=== PATIENT | male | born 1970 | race Caucasian/White ===

== ENCOUNTER 2024-03-31 23:35 | Emergency (ER) | payer OTHER, SELFPAY ==
[2024-03-31 23:37] VITALS: BP 124/93
[2024-04-01 00:25] VITALS: BP 146/83; BMI 29.3
--- NOTE | 2024-04-01 01:31 | ED.GENMED ---
History of Present Illness
General
Chief Complaint: Ear Problem
Source: patient
Exam Limitations: none
Time Seen by Provider: 03/31/24 23:51
Nursing documentation reviewed up to this point in time: agreed with
History of Present Illness
History of Present Illness:
54-year-old male with history as documented presents for evaluation of ringing in his ear. Patient reports that he was sitting in bed reading tonight and began to have ringing in his left ear. He says that it became loud and very intense and was
not going away and so he came to the emergency room. He says since arriving it seems to have improved. He says he has had similar symptoms in the past but never quite as intense or persistent�usually last for brief moment and goes away. He denies
any other complaints including hearing loss, ear pain, ear discharge or drainage. He is on lacosamide for epilepsy and has had been on a steady dose since August. He does not take aspirin.
Past History
Past History
ED Past Medical History: Asthma, Cancer (Thyroid) and GERD
ED Past Surgical History: Other (Thyroidectomy)
Social History
Tobacco: Non-smoker
Alcohol: None
Personal:
Living: with family
Family History
Family History: Other (COPD and her father. MS her mother)
Review of Systems
Review of Systems
All Other Systems: ROS reviewed and negative except as documented in HPI and ROS
EENT: Reports other (Tinnitus)
Phy Exam
Physical Exam
Physical Exam:
General: Awake, alert, oriented x3; no acute distress
Head: Normocephalic, atraumatic
Eyes: Conjunctiva normal, pupils equal round and reactive to light bilaterally
Ears: External ear normal bilaterally, right ear canal clear and TM normal; left ear canal no cerumen or obstruction, TM appears normal with good light reflex, no bulging, no effusion, no cholesteatoma or any other abnormality noted
Throat: Airway intact, handling secretions
Neck: Trachea midline, supple without meningismus, no carotid bruits appreciated
Lungs: Breathing comfortably no distress
Heart: Regular rate and rhythm, no murmurs, gallops, or rubs
Neuro: Cranial nerves grossly intact, speech fluid, ambulatory with normal gait, no gross motor or sensory deficits
Scores
Heart Failure Risk
Heart Failure Risk Score: Not Applicable
Heart Score for Chest Pain Patients
STEMI patient?: Not applicable
Withdrawal Assessment of Alcohol
Withdrawal Assessment Completed?: Not applicable
Course
Vital Signs
Initial and Last Documented VS:
Initial Vital Signs
Pulse Resp BP Pulse Ox
74 18 124/93 96
03/31/24 23:37 03/31/24 23:37 03/31/24 23:37 03/31/24 23:37
Last Documented Vital Signs
Pulse Resp BP Pulse Ox
74 18 146/83 97
03/31/24 23:37 03/31/24 23:37 04/01/24 00:25 04/01/24 00:25
MDM/Problems Addressed
Differential Diagnosis Includes:
Cerumen impaction, ear effusion, ototoxicity from medication
MDM/Problems Addressed:
54-year-old male presents with left ear tenderness�was intense and more persistent earlier while sitting in bed seems to have improved since arrival in the ER. No ear pain or hearing loss. Exam appears normal. Stable for discharge refer to ENT as
an outpatient; he does have issues with allergies reasonable to start on some Flonase to see if perhaps this could be related to allergies/middle ear disease.
*Pulse Oximetry
Patient hypoxic: no
*Critical Care Note
Total Time (30-74mins, 75-104mins- exclusive of procedures): Not Applicable
Data Reviewed
Source: patient
ED Attending Note
-
Portions of this chart may have been created with voice recognition software.� Occasional wrong word or��sound alike� substitutions may have occurred due to the inherent limitations of voice recognition software.
Discharge Plan
Departure
Patient Disposition: Home (Routine Discharge)
Date of Disposition: 04/01/24
Time of Disposition: 00:16
Patient with high blood pressure during this ER visit?: No
Discharge Problem:
Tinnitus of left ear
Instructions: Tinnitus (ringing in the ears)
Prescriptions:
No Action
clonazepam 0.5 MG tablet
0.5 mg PO HS
clomipramine [Anafranil] 75 MG capsule
75 mg PO HS
albuterol sulfate 1 PUFF HFA aerosol inhaler
1 puff inhalation R Q4HPRN PRN (Reason: sob/ exercise)
Patient Comments:
used pre exercise
azithromycin 250 MG tablet
250 mg PO DAILY
prednisone 20 MG tablet
20 mg PO BID
promethazine-codeine 5 ML syrup
5 - 10 ml PO Q6HPRN PRN (Reason: Cough) Qty: 120 0RF
albuterol sulfate 18 GM HFA aerosol inhaler
18 gm IH Q4 Qty: 1 0RF
prednisone 10 mg tablet
10 mg PO DIRECTED Qty: 30 0RF
Rx Instructions:
50mg x 2 days, 40mg x 2 days, 30mg x 2 days, 20mg x 2 days, 10mg x 2 days
albuterol sulfate [ProAir HFA] 90 mcg/actuation HFA aerosol inhaler
1 puff inhalation Q4HPRN PRN (Reason: shortness of breath) Qty: 8.5 0RF
albuterol sulfate 2.5 mg /3 mL (0.083 %) solution for nebulization
2.5 mg inhalation Q4H PRN (Reason: bronchospasm) Qty: 90 0RF
Referrals:
Kamlesh Lara MD [Active] - Call in 1-3 days for appt
Activity Restrictions/Additional Instructions:
Thank you for visiting the Emergency Department at [facility].
1. Please schedule a follow up appointment as directed. Call first thing tomorrow morning to make an appointment.
2. If indicated, please take your medications as instructed and indicated on discharge paperwork.
3. If any of your symptoms do not improve, or persist, or become more severe within 6-12 hours, please return to the emergency department for further care.
4. Please return to the emergency department if you develop a headache, neck pain/stiffness, fever greater than 100.4F, chest pain, shortness of breath, persistent nausea, vomiting, slurred speech, difficulty walking, numbness/tingling, weakness,
signs of infection or any other symptoms that are worrisome to you.
Please call [phone] if you have any questions.
Interventions
Interventions:
*Risk Screen - Suicide Last Done: 04/01/24 00:26
*General Assessment Last Done: 03/31/24 23:40
*Neglect/Abuse Screening Last Done: 04/01/24 00:26
ED- Fall Risk Assessment Last Done: 04/01/24 00:30
*ED COVID-19 Vaccine History Last Done: 04/01/24 00:26
*Nursing Disposition Last Done: 04/01/24 00:30
Discharge Date and Time
Discharge Date/Time: 04/01/24 00:34
Print Language: JORDANIAN
== END 2024-04-01 00:34 | disposition home or self-care (01) ==
LOC: EMR 23:35
PROVIDERS: EMERGENCY PHYSICIAN Emergency Medicine; FAMILY PHYSICIAN Internal Medicine
DX: H93.12 Tinnitus, left ear (principal); J45.909 Unspecified asthma, uncomplicated; K21.9 Gastro-esophageal reflux disease without esophagitis; G40.909 Epilepsy, unspecified, not intractable, without status epilepticus; Z79.899 Other long term (current) drug therapy
CPT/HCPCS: 99282

== ENCOUNTER → 2024-08-09 15:30 | Outpatient (REF) | payer OTHER, SELFPAY | LOC: RAD 15:30 | PROVIDERS: ATTENDING PHYSICIAN Nurse Practitioner Family | DX: J06.9 Acute upper respiratory infection, unspecified (principal) | CPT/HCPCS: 71046 ==

== ENCOUNTER → 2024-10-05 17:14 | Outpatient (REF) | payer OTHER, SELFPAY | LOC: RAD 17:14 | PROVIDERS: ATTENDING PHYSICIAN Nurse Practitioner Family | DX: R07.9 Chest pain, unspecified (principal) | CPT/HCPCS: 71046 ==

== ENCOUNTER 2024-11-13 20:23 | Emergency (ER) | payer OTHER, SELFPAY ==
[2024-11-13 20:25] VITALS: BP 131/81
[2024-11-13 20:59] LABS: % Basophils 0.9 % (0-2); % Eosinophils 6.2 % (0-6); % Immature Granulocytes 0.2 % (0-0.5); % Lymphocytes 28.6 % (20.5-51.1); % Monocytes 7.8 % (1.7-9.3); % Neutrophils 56.3 % (42.2-75.2); Absolute Basophils 0.1 10^3/uL (0-0.2); Absolute Eosinophils 0.5 10^3/uL (0-0.7); Absolute Lymphocytes 2.4 10^3/uL (1.2-3.4); Absolute Monocytes 0.7 10^3/uL (0.1-0.6); Absolute Neutrophils 4.8 10^3/uL (1.4-6.5); Hematocrit 43.9 % (39.0-52.0); Hemoglobin 14.8 g/dL (13.0-18.0); Mean Corp Hgb Conc. 33.7 g/dL (33.0-37.0); Mean Corpuscular Hgb 27.7 pg (27.0-31.0); Mean Corpuscular Volume 82.2 fL (80.0-94.0); Mean Platelet Volume 9.9 fL (7.4-10.4); Nucleated Red Blood Cells % 0 % (-); Platelet Count 250 10^3/uL (130-400); Red Blood Cell Count 5.34 10^6/uL (4.70-6.10); Red Cell Dist. Width 13.5 % (11.5-14.5); White Blood Cell Count 8.5 10^3/uL (4.8-10.8)
[2024-11-13 21:04] LABS: ALT (SGPT) 37 U/L (0-50); AST (SGOT) 32 U/L (17-59); Albumin 3.9 g/dl (3.5-5.0); Alkaline Phosphatase 112 U/L (38-126); Blood Urea Nitrogen 22 mg/dl (9-20); Calcium 9.6 mg/dl (8.4-10.2); Carbon Dioxide 28 mmol/L (22-30); Chloride 103 mmol/L (98-107); Glucose 108 mg/dl (70-99); Potassium 4.7 mmol/L (3.5-5.1); Sodium 139 mmol/L (135-145); Total Bilirubin 0.4 mg/dl (0.2-1.3); Total Protein 6.8 g/dl (6.3-8.2); eGFR > 60.00
[2024-11-13 21:13] LABS: Troponin I < 0.012 ng/ml
[2024-11-13 21:35] LABS: TSH Reflex To Free T4 1.81 uIU/ml (0.47-4.68)
[2024-11-13 21:53] VITALS: BP 121/85; BMI 30.1
[2024-11-13 22:00] VITALS: BP 118/85
--- NOTE | 2024-11-13 22:40 | ED.GENMED ---
History of Present Illness
General
Chief Complaint: Cardiac Symptoms
Time Seen by Provider: 11/13/24 22:06
History of Present Illness
History of Present Illness:
54-year-old male with history of thyroid cancer status post thyroidectomy and seizure disorder presenting to the emergency department for episode of chest pain. Patient reports around 830 he started to have midsternal chest pain and felt a lot of
pressure in his head. He also noted some shortness of breath at the time. Symptoms lasted about 2 hours and have since completely resolved. Does note that he has had anxiety attacks in the past with similar symptoms, however felt that this was
slightly worse. Denies any known cardiac history. Denies family history of cardiac disease. Does note recent adjustment of his thyroid medication. Denies abdominal pain or GI symptoms. Denies additional acute complaints
Past History
Past History
ED Past Medical History: Asthma, Cancer (Thyroid) and GERD
ED Past Surgical History: Other (Thyroidectomy)
Social History
Tobacco: Non-smoker
Alcohol: None
Personal:
Living: with family
Family History
Family History: Other (COPD and her father. MS her mother)
Phy Exam
Physical Exam
Physical Exam:
General: Well-appearing, no clinical signs of dehydration, nontoxic and in no acute distress
HEENT: protecting airway
Neck: appears supple
CV: Normal heart rate, regular rhythm, no evidence of cyanosis
Resp: No accessory muscle use, no increased work of breathing
Abd: Soft and non-distended, no tenderness to palpation
Extremities: No deformities, no swelling
Neuro: alert, no focal neurologic deficit
: deferred
Rectal: deferred
Psych: Normal affect
Skin: Intact
Course
Orders/Labs/Results
Orders:
Orders
11/13/24 20:27
Electrocardiogram (*1) Urgent
Reason for Study: Chest Pain
11/13/24 20:28
EKG- Treatment ONCE
11/13/24 20:42
Comprehensive Metabolic Panel Urgent
11/13/24 20:44
Complete Blood Count/With Diff Urgent
TSH Reflex To Free T4 Urgent
Troponin I Urgent
11/13/24 22:39
Electrocardiogram (*1) Urgent
Reason for Study: Chest Pain
EKG- Treatment ONCE
11/13/24 23:00
Troponin I Urgent
Abnormal Lab Results
11/13/24 11/13/24
20:42 20:44
Absolute Monos (auto) 0.7 H 10^3/uL
(0.1-0.6)
Eosinophils % 6.2 H %
(0-6)
BUN 22 H mg/dl
(9-20)
Glucose 108 H mg/dl
(70-99)
11/13/24 20:44
11/13/24 20:42
Vital Signs
Initial and Last Documented VS:
Initial Vital Signs
Temp Pulse Resp BP Pulse Ox
97.6 F 58 18 131/81 96
11/13/24 20:25 11/13/24 20:25 11/13/24 20:25 11/13/24 20:25 11/13/24 20:25
Last Documented Vital Signs
Temp Pulse Resp BP Pulse Ox
97.6 F 73 24 127/86 98
11/13/24 20:25 11/13/24 23:00 11/13/24 22:45 11/13/24 23:00 11/13/24 23:00
MDM/Problems Addressed
MDM/Problems Addressed:
54-year-old male with history of thyroid cancer status post thyroidectomy and seizure disorder presenting for chest pain. Vital signs are normal.
On exam patient is resting comfortably, currently asymptomatic. EKG obtained on patient's arrival, nonischemic. Reassuring examination, particularly now that patient is asymptomatic. Labs obtained prior to my assessment, negative troponin. At
this time lower suspicion for ACS. Patient denies any trauma to the chest, notes tenderness, without concern for significant injury. He is afebrile, no systemic symptoms, without concern for infection. No respiratory symptoms, no tachycardia, no
hypoxia, without concern for PE. Suspect that anxiety could be contributing to symptoms. TSH checked, within normal limits. Will check second troponin and repeat EKG with ultimate plan for outpatient follow-up given hemodynamic stability.
*EKG
Interpreted by ED Provider?: Yes
EKG Intrepretation Date: 11/13/24
EKG Intrepretation Time: 22:42
Interpretation: normal
Comparison EKG: no changes (11/14/22)
Heart Rate: 52
Rate: normal
Rhythm: sinus
[place]: normal axis
Interval: normal interval
QRS Pattern: normal QRS
Ischemia: no ischemia
*Critical Care Note
Total Time (30-74mins, 75-104mins- exclusive of procedures): Not Applicable
ED Attending Note
-
Portions of this chart may have been created with voice recognition software.� Occasional wrong word or��sound alike� substitutions may have occurred due to the inherent limitations of voice recognition software.
Discharge Plan
Departure
Patient Disposition: Home (Routine Discharge)
Date of Disposition: 11/13/24
Time of Disposition: 23:35
Patient with high blood pressure during this ER visit?: No
Condition: Good
Discharge Problem:
Chest pain
Instructions: Chest Pain (DC)
Prescriptions:
No Action
clonazepam 0.5 MG tablet
0.5 mg PO HS
clomipramine [Anafranil] 75 MG capsule
75 mg PO HS
albuterol sulfate 1 PUFF HFA aerosol inhaler
1 puff inhalation R Q4HPRN PRN (Reason: sob/ exercise)
Patient Comments:
used pre exercise
azithromycin 250 MG tablet
250 mg PO DAILY
prednisone 20 MG tablet
20 mg PO BID
promethazine-codeine 5 ML syrup
5 - 10 ml PO Q6HPRN PRN (Reason: Cough) Qty: 120 0RF
albuterol sulfate 18 GM HFA aerosol inhaler
18 gm IH Q4 Qty: 1 0RF
prednisone 10 mg tablet
10 mg PO DIRECTED Qty: 30 0RF
Rx Instructions:
50mg x 2 days, 40mg x 2 days, 30mg x 2 days, 20mg x 2 days, 10mg x 2 days
albuterol sulfate [ProAir HFA] 90 mcg/actuation HFA aerosol inhaler
1 puff inhalation Q4HPRN PRN (Reason: shortness of breath) Qty: 8.5 0RF
albuterol sulfate 2.5 mg /3 mL (0.083 %) solution for nebulization
2.5 mg inhalation Q4H PRN (Reason: bronchospasm) Qty: 90 0RF
Referrals:
NONE,* [Active] -
Kamlesh Gregg MD [Active] -
Activity Restrictions/Additional Instructions:
You were seen in the emergency department for chest pain
You were found to have normal blood work and EKG. We recommend that you follow-up with cardiology if your symptoms are returning or persisting
Please follow-up closely with your primary care physician.
Return to the emergency department for any worsening of your symptoms, or any development of chest pain, difficulty breathing, abdominal pain with persistent vomiting and inability to tolerate food or liquid by mouth (concern for dehydration),
weakness, headache or confusion, fever greater than 100.4, or any additional symptoms that are concerning to you.
Thank you for choosing [facility].
Interventions
Interventions:
*Risk Screen - Suicide Last Done: 11/13/24 20:27
*General Assessment Last Done: 11/13/24 20:27
*Neglect/Abuse Screening Last Done: 11/13/24 20:27
*ED COVID-19 Vaccine History Last Done: 03/24/25 20:27
ED- Pulmonary Assessment Last Done: 11/13/24 21:55
ED- Cardiac Assessment Last Done: 11/13/24 21:55
Discharge Date and Time
Print Language: WOLOF
[2024-11-13 23:00] VITALS: BP 127/86
[2024-11-13 23:29] LABS: Troponin I < 0.012 ng/ml
== END 2024-11-13 23:53 | disposition home or self-care (01) ==
LOC: EMR 20:23
PROVIDERS: Student in an Organized Health Care Education/Training Program; EMERGENCY PHYSICIAN Student in an Organized Health Care Education/Training Program; FAMILY PHYSICIAN Nurse Practitioner Family
DX: R07.89 Other chest pain (principal); R06.02 Shortness of breath; K21.9 Gastro-esophageal reflux disease without esophagitis; J45.909 Unspecified asthma, uncomplicated; E89.0 Postprocedural hypothyroidism; F41.9 Anxiety disorder, unspecified; G40.909 Epilepsy, unspecified, not intractable, without status epilepticus; Z85.850 Personal history of malignant neoplasm of thyroid; Z88.1 Allergy status to other antibiotic agents; Z88.8 Allergy status to other drugs, medicaments and biological substances; Z91.048 Other nonmedicinal substance allergy status
CPT/HCPCS: 99284; 80053; 84443; 84484; 85025; 93005